=== PATIENT | male | born 1980 | race Caucasian/White ===

== ENCOUNTER 2019-04-15 20:00 | Emergency (ER) | payer OTHER ==
[~2019-04-15] VITALS: Ht 182.9 cm; Wt 93.9 kg
[~2019-04-15 20:00] MED LIST: B COMPLEX1 EACH PO; B12INJ IM; CLOMID PO; DHEA25 MG PO; ESTROGEN BLOCKER PO; HYDROCODON-ACE1 EAC7 PO; HYDROCODONE-AP1 EAC6 PO; KEFLEX500 MG PO; LOVAZA1000 MG PO; METHYLFOLATE PO; MOBIC15 MG PO; MULTIVITAMINS1 EAC7 PO; NAPROSYN500 MG PO; NIACIN 500 MG500 M1 PO; NORCO 5-325 TA1 EACH PO; PROSTATE MED PO; RHODIOLA PO; ROBAXIN 750 MG750 M1 PO; TESTOSTERO200 MG/11 IM; TRAMADOL 50 MG50 MG PO; ULTRAM50 MG PO; VICODIN 5-3001 EACH PO; VITAMIN C1000 MG PO; VITAMIN D1000 UNI1 PO; VITAMIN E400 UNI2 PO; ZANAFLEX4 MG PO; [UNRECOGNIZED DRUG - OTHER] PO
[2019-04-15 20:54] LABS: ABSOLUTE BASOPHILS 0.1 thou/uL (0.0-0.2); ABSOLUTE EOSINOPHILS 0.2 thou/uL (0.0-0.7); ABSOLUTE LYMPHOCYTES 1.3 thou/uL (0.8-5.3); ABSOLUTE MONOCYTES 0.8 thou/uL (0.0-1.2); BASOPHILS 0.8 %; EOSINOPHILS 2.4 %; HEMATOCRIT 44.4 % (42.0-52.0); HEMOGLOBIN 15.2 gm/dL (14.0-18.0); LYMPHOCYTES 15.5 %; MCH 32.7 pg (26.0-34.0); MCHC 34.1 g/dL (28.0-37.0); MCV 95.8 fL (80.0-100.0); MONOCYTES 9.1 %; MPV 9.2 fl. (7.2-11.1); NUCLEATED RBCS 0 /100WBC; PLATELET COUNT* 234 thou/uL (150-400); POLYS 72.2 %; RBC 4.64 mil/uL (4.50-6.00); RDW-CV 14.2 % (10.5-14.5); WBC 8.3 thou/uL (4.0-11.0)
[2019-04-15 21:27] LABS: CALCIUM 8.8 mg/dL (8.5-10.1); POTASSIUM 4.5 mmol/L (3.5-5.1)
[2019-04-15 23:20] VITALS: BP 135/80
== END 2019-04-15 23:20 | disposition short-term general hospital (02) ==
LOC: M.ERS 20:00
PROVIDERS: Emergency Medicine
DX: K06.8 Other specified disorders of gingiva and edentulous alveolar ridge (principal); Z90.49 Acquired absence of other specified parts of digestive tract; Z98.890 Other specified postprocedural states